=== PATIENT | female | born 1960 | race Caucasian/White ===

== ENCOUNTER 2019-10-01 07:08 | Outpatient (CLI) | payer BC, SELFPAY ==
--- NOTE | ~2019-10-01 | MM_ITS ---
EXAMINATION: MM screening moises BI w swathi HISTORY: Screening mammogram TECHNIQUE: Craniocaudal and mediolateral oblique 3-D tomosynthesis images were obtained and synthetic 2-D images were generated. CAD analysis was submitted and interpreted. COMPARISON: Comparison to multiple prior studies sequentially, with oldest reviewed study dated 01/2013. BREAST PARENCHYMAL COMPOSITION: The breasts are heterogeneously dense, which may obscure small masses . FINDINGS: There is no evidence of suspicious mass, calcification, or architectural distortion to sugg est malignancy in either breast. There has been no suspicious interval change. IMPRESSION: 1. No mammographic evidence of malignancy. 2. Recommend routine screening mammography in one year. BI-RADS Category 1: Negative Reviewed, dictated and finalized at location A. INE HEEL SPRAYER
== END 2019-10-01 07:09 | disposition home or self-care (01) ==
PROVIDERS: PCP Family Medicine; Visit Provider Obstetrics & Gynecology
DX: Z12.31 Encounter for screening mammogram for malignant neoplasm of breast (principal)
CPT/HCPCS: 77063; 77067

== ENCOUNTER 2020-10-07 08:04 | Outpatient (CLI) | payer BC, SELFPAY ==
--- NOTE | ~2020-10-07 | MM_ITS ---
EXAMINATION: MM screening moises BI w swathi HISTORY: Screening mammogram, family history of breast cancer in her mother and sister. TECHNIQUE: Craniocaudal and mediolateral oblique 3-D tomosynthesis images were obtained and synthetic 2-D images were generated. CAD analysis was submitted and interpreted. COMPARISON: 10/01/2019, 09/26/2018 BREAST PARENCHYMAL COMPOSITION: The breasts are heterogeneously dense, which may obscure small masses . FINDINGS: Scattered benign-appearing calcifications are present. There is no evidence of suspicious m ass, calcification, or architectural distortion to suggest malignancy in either breast. There has bee n no suspicious interval change. IMPRESSION: 1. No mammographic evidence of malignancy. 2. Recommend routine screening mammography in one year. BI-RADS Category 2: Benign finding(s). Reviewed, dictated and finalized at location A. UNIT MANAGER
== END 2020-10-07 08:05 | disposition home or self-care (01) ==
LOC: ANHIMG 08:08
PROVIDERS: PCP Obstetrics & Gynecology; Visit Provider Obstetrics & Gynecology
DX: Z12.31 Encounter for screening mammogram for malignant neoplasm of breast (principal)
CPT/HCPCS: 77063; 77067

== ENCOUNTER 2020-11-15 10:45 | Outpatient (CLI) | payer BC, SELFPAY | END 2020-11-15 10:46 | disposition home or self-care (01) | LOC: ANHCOVIDVC 10:45 | PROVIDERS: PCP Obstetrics & Gynecology | DX: Z23 Encounter for immunization (principal) | CPT/HCPCS: 0001A; 91300 ==

== ENCOUNTER 2020-12-06 10:41 | Outpatient (CLI) | payer BC, SELFPAY | END 2020-12-06 10:42 | disposition home or self-care (01) | LOC: ANHCOVIDVC 10:42 | PROVIDERS: PCP Obstetrics & Gynecology | DX: Z23 Encounter for immunization (principal) | CPT/HCPCS: 0002A; 91300 ==

== ENCOUNTER 2021-10-22 08:04 | Outpatient (CLI) | payer BC, SELFPAY ==
--- NOTE | ~2021-10-22 | MM_ITS ---
EXAMINATION: MM screening moises BI w swathi HISTORY: Screening mammogram TECHNIQUE: Craniocaudal and mediolateral oblique 3-D tomosynthesis images were obtained and synthetic 2-D images were generated. CAD analysis was submitted and interpreted. COMPARISON: 10/07/2020, 10/01/2019, 09/26/2018 bilateral digital screening mammogram examinations BREAST PARENCHYMAL COMPOSITION: The breasts are heterogeneously dense, which may obscure small masses . FINDINGS: There is no evidence of suspicious mass, calcification, or architectural distortion to sugg est malignancy in either breast. There has been no suspicious interval change. IMPRESSION: 1. No mammographic evidence of malignancy. 2. Recommend routine screening mammography in one year. BI-RADS Category 1: Negative Reviewed, dictated and finalized at location A.
== END 2021-10-22 08:05 | disposition home or self-care (01) ==
LOC: ANHIMG 08:05
PROVIDERS: PCP Obstetrics & Gynecology; Visit Provider Obstetrics & Gynecology
DX: Z12.31 Encounter for screening mammogram for malignant neoplasm of breast (principal)
CPT/HCPCS: 77063; 77067

== ENCOUNTER 2022-12-14 08:17 | Outpatient (CLI) | payer BC, SELFPAY ==
--- NOTE | ~2022-12-14 | MM_ITS ---
EXAMINATION: MM screening moises BI w swathi HISTORY: Screening mammogram, family history of breast cancer in her mother and sister. TECHNIQUE: Craniocaudal and mediolateral oblique 3-D tomosynthesis images were obtained and synthetic 2-D images were generated. CAD analysis was submitted and interpreted. COMPARISON: 10/22/2021, 10/07/2020, 10/01/2019 BREAST PARENCHYMAL COMPOSITION: The breasts are heterogeneously dense, which may obscure small masses . FINDINGS: No suspicious mass, calcification, or architectural distortion are identified in either lizbeth ast to suggest malignancy. There has been no suspicious interval change. IMPRESSION: 1. No mammographic evidence of malignancy. 2. Recommend routine screening mammography in one year. BI-RADS Category 1: Negative Reviewed, dictated and finalized at location A.
== END 2022-12-14 08:18 | disposition home or self-care (01) ==
LOC: ANHIMG 08:19
PROVIDERS: PCP Family Medicine; Visit Provider Obstetrics & Gynecology
DX: Z12.31 Encounter for screening mammogram for malignant neoplasm of breast (principal)
CPT/HCPCS: 77063; 77067

== ENCOUNTER 2023-12-23 07:55 | Outpatient (CLI) | payer BC, SELFPAY ==
--- NOTE | ~2023-12-23 | US_ITS ---
EXAMINATION: US thyroid DATE: 12/23/2023 08:14 INDICATION: Nontoxic goiter, unspecified. TECHNIQUE: Multiple ultrasound images of the thyroid were obtained. COMPARISON: Ultrasound 10/01/2018 FINDINGS: The right thyroid lobe measures 6.8 x 2.3 x 2.0 cm. The left thyroid lobe measures 5.3 x 1.9 x 1.9 c m. The thyroid is diffusely heterogeneous and hypoechoic. Vascularity is increased. No discrete nodu le. IMPRESSION: 1. Heterogeneous, hypervascular thyroid, likely chronic lymphocytic (Selina's) thyroiditis. Reviewed, dictated and finalized at location A. IMPRESSION: 1. Heterogeneous, hypervascular thyroid, likely chronic lymphocytic (Selina' s) thyroiditis.
== END 2023-12-23 07:56 ==
PROVIDERS: PCP Family Medicine; Visit Provider Obstetrics & Gynecology
DX: E04.9 Nontoxic goiter, unspecified (principal)
CPT/HCPCS: 76536

== ENCOUNTER 2024-02-23 07:31 | Outpatient (CLI) | payer BC, SELFPAY ==
--- NOTE | ~2024-02-23 | MM_ITS ---
EXAMINATION: MM screening moises BI w swathi HISTORY: Screening TECHNIQUE: Craniocaudal and mediolateral oblique 3-D tomosynthesis images were obtained and synthetic 2-D images were generated. CAD analysis was submitted and interpreted. COMPARISON: No prior mammogram is available for comparison at this institution. BREAST PARENCHYMAL COMPOSITION: Dense: The breasts are heterogeneously dense, which may obscure small masses FINDINGS: There are no suspicious masses, calcifications or architectural distortion in either breast to suggest malignancy. IMPRESSION: 1. No mammographic evidence for malignancy in either breast. 2. Routine yearly screening mammogram and regular clinical breast examination are recommended. BI-RADS Category 1: Negative Reviewed, dictated and finalized at location B. IMPRESSION: 1. No mammographic evidence for malignancy in either breast. 2. Routine yearly screening mammogram and regular clinical breast examination a re recommended. BI-RADS Category 1: Negative
== END 2024-02-23 07:32 | disposition home or self-care (01) ==
LOC: ANHIMG 07:33
PROVIDERS: PCP Family Medicine; Visit Provider Obstetrics & Gynecology
DX: Z12.31 Encounter for screening mammogram for malignant neoplasm of breast (principal)
CPT/HCPCS: 77063; 77067

== ENCOUNTER 2025-01-13 15:13 | Outpatient (CLI) | payer BC, SELFPAY ==
--- NOTE | ~2025-01-13 | US_ITS ---
Pelvic ultrasound. Clinical History: Unspecified condition associated with female genitalia Technique: Realtime transabdominal and transvaginal scanning of the pelvis was performed. Color flow Doppler and Doppler spectral analysis were performed. Findings: The uterus is anteverted. The endometrial stripe has a thickness of 3 mm. No focal mass is identified. The right ovary measures 2.5 x 1.4 x 1.6 cm. No significant right ovarian or adnexal mass is seen. The left ovary measures 2.0 x 1.9 x 1.4 cm. No significant left ovarian or adnexal mass is seen. Vascular flow present in both ovaries on Doppler spectral analysis. There is no evidence of free fluid in the cul de sac. Impression: Unremarkable pelvic ultrasound. Reviewed, dictated and finalized at [facility]. Impression: Unremarkable pelvic ultrasound.
== END 2025-01-13 15:14 | disposition home or self-care (01) ==
LOC: MICIMG 15:14
PROVIDERS: PCP Family Medicine; Visit Provider Obstetrics & Gynecology
DX: N94.9 Unspecified condition associated with female genital organs and menstrual cycle (principal)
CPT/HCPCS: 76830; 76856

== ENCOUNTER 2025-03-29 07:22 | Outpatient (CLI) | payer BC, SELFPAY ==
--- NOTE | ~2025-03-29 | MM_ITS ---
EXAMINATION: MM screening moises BI w swathi HISTORY: Screening TECHNIQUE: Craniocaudal and mediolateral oblique 3-D tomosynthesis images were obtained and synthetic 2-D images were generated. CAD analysis was submitted and interpreted. COMPARISON: Comparison to multiple prior studies sequentially, with oldest reviewed study dated 09/26/2018. BREAST PARENCHYMAL COMPOSITION: The breasts are heterogeneously dense, which may obscure small masses. FINDINGS: There is no evidence of suspicious mass, calcification, or architectural distortion to suggest malignancy in either breast. IMPRESSION: 1. No mammographic evidence of malignancy. 2. Recommend routine screening mammography in one year. BI-RADS Category 1: Negative Reviewed, dictated and finalized at location C.
--- OUTSIDE RECORDS SUMMARY | 2025-03-29 07:26 | XMS_ITS | Encounter Summary ---
Author Organization [facility] Address [address] [place] [address] Care Team Providers Care Business Controller Name Role Phone Unavailable Primary Care Provider Unavailabl e Encounter Details Date Type Department Care Team (Late st Contact Info) Description 08/14/2023 Lab Requisition [facility] - DermPath Lab [address] [place] [id number] Uzair Saxena MD [address] [place] [address] Social History Tobacco Use Types Packs/Day Years Used Date Smoking Tobacco: Never Assessed Comments Unknown Sex and Gender Information Value Date Recorded Sex Assigned at Not on file Legal Sex Female 6:09 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 Gender Identity Not on file Sexual Orientation Not on file documented as of this encounter Plan of Treatment Not on file documented as of this encounter Procedures Procedure Name Priority Date/Time Associated Diagnosis Comments DERMATOPATHOLOGY Routine 08/14/2023 3:33 AM DECORATING INSTRUCTOR documented in this encounter Results * DERMATOPATHOLOGY (08/14/2023 3:33 AM DECORATING INSTRUCTOR) Case Report Dermatopathology Report Case: [id number] Authorizing Provider: Uzair Saxena MD Collected: 08/14/2023 03:33 AM Ordering Location: [facility] DermPath Lab Received: 08/15/2023 06:08 AM Pathologist: Valeria Davis MD Specimen: Skin, left mandibular 4 11:27 AM DECORATING INSTRUCTOR DERMATOPATHOLOGY LABORATORY Final Diagnosis Specimen A. SKIN, left mandibular: EPIDERMOID CYST (L72.0) 4 11:27 AM DECORATING INSTRUCTOR DERMATOPATHOLOGY LABORATORY at [address] DECORATING INSTRUCTOR Clinical History R/O CYST 4 11:27 AM [facility] DERMATOPATHOLOGY LABORATORY Gross Description Specimen A: Received is one formalin filled container labeled with the patient's name and designated left mandibular. The specimen consists of a piece of skin measuring 12x92u0 mm. The specimen is serially sectioned and a claims service representative section is submitted in cassette 1. Jar 0+. 11:27 AM [facility] DERMATOPATHOLOGY LABORATORY Microscopic Description Specimen A. SKIN, left mandibular: Within the dermis, there is a space lined by epithelium that resembles normal epidermis and the infundibular portion of the hair follicle. 4 11:27 AM [facility] DERMATOPATHOLOGY LABORATORY Disclaimer An external and internal positive and negative controls are appropriate for the histochemical, immunohistochemical and immunofluorescence stain(s) in this case (if any), except where stated explicitly. The performance characteristics of the stain(s) cited in this report were developed and its performance characteristic determined by the Dermatopathology Laboratory at [facility], directed by Dr. Mathew Gomez. These tests need not be, and therefore are not, approved by the [place] Food and Drug Administration. The tests are used for clinical purposes. Billing Codes Specimen Charges Stain Charges 67667 1 4 11:27 AM [facility] DERMATOPATHOLOGY LABORATORY Embedded Images 4 11:27 AM [facility] DERMATOPATHOLOGY LABORATORY Pathology/Cytolo gy TISSUE SPECIMEN FROM SKIN / Unknown 08/14/2023 3:33 AM DECORATING INSTRUCTOR 08/15/2023 6:08 AM DECORATING INSTRUCTOR Uzair Saxena MD LAB - PATHOLOGY/CYTOLOGY ORDERAB LES Final Result DERMATOPATHOLOGY LABORATORY [facility] - Department of Dermatology [address] [phone] documented in this encounter Visit Diagnoses Not on filedocumented in this encounter
--- OUTSIDE RECORDS SUMMARY | 2025-03-29 07:26 | XMS_ITS | Clinical Summary ---
Author Organization [facility] Address [address] [facility] [place] [address] Care Team Providers Care Jury Consultant Name Role Phone Unavailable Primary Care Provider Unavailabl e Source Comments [facility],non-owned Affiliates and Associated Physician Practices is amultiple site organization consisting of ambulatory clinics and hospital sitesin [place], [place], [place] and [place]. This disclosure is being madepursuant to the Care Everywhere program and may not contain all information available regarding this patient. 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 Gender Identity Not on file Sexual Orientation Not on file Plan of Treatment Health Maintenance Due Date Last Done Comments COLOGUARD (AGES 45-75) - COL ON CA SCREENING 1961 COLON MONITORING 1961 COLONOSCOPY - COLON CA SCREENING 1961 CT COLONOGRAPHY - COLON CA SCREENING 1961 Colorectal Cancer Screening 1961 FIT - COLON CA SCREENING 1961 FLEX SIG - COLON CA SCREENING 1961 LIPID TESTING 1961 MAMMOGRAM 1961 HIV SCREENING 1976 HEPATITIS C SCREENING 07/17/1979 DTAP/TDAP/TD VACCINES (1 - Tdap) 1980 PAP SMEAR 1982 PNEUMOCOCCAL VACCINE 50+ (1 of 1 - PCV) 2011 ZOSTER VACCINE (1 of 2) 2011 COVID-19 VACCINE ( - 2023-2 5 season) 2024 DEPRESSION SCREENING 08/04/2024 INFLUENZA VACCINE (#1) 2025 Respiratory Syncytial Virus (RSV) Vaccine Pt: or over 60 yrs (1 - 1-dose 75+ series) 2036 HEPATITIS B VACCINE Aged Out No longe r eligible based on patient's age to complete this topic HIB VACCINE Aged Out No longer eligi ble based on patient's age to complete this topic HPV VACCINE Aged Out No longer eligi ble based on patient's age to complete this topic MENINGOCOCCAL (Group B) VACC INE SHARED DECISION-MAKING Aged Out No longer eligibl e based on patient's age to complete this topic MENINGOCOCCAL GROUPS A/C/Y/W VACCINE Aged Out No longer eligible b ased on patient's age to complete this topic Insurance [facility] Address: [facility] [id number] [place] [address]
--- OUTSIDE RECORDS SUMMARY | 2025-03-29 07:26 | XMS_ITS | Clinical Summary ---
Author Organization [address] Address [address] [place] [address] BENJIE Solorio [id number] Care Team Providers Care Kiss Setter Hand Name Role Phone Shonna Lamb MD Primary Care Provider Allergies No known active allergies Medications multivit with minerals/lutein (MULTIVITAMIN 50 PLUS ORAL)Indication s:supplement Take 1 tablet/capsule by mouth every morning Active Lumigan 0.01 % ophthalmic drops Administer 1 drop into both eyes nightly 2.5 mL 11 4 Active Active Problems Problem Noted Date Diagnosed Date Right posterior capsular opacification 4 Pseudophakia of both eyes 05/21/2024 Nuclear sclerotic cataract of right eye 04/01/20 24 Primary open angle glaucoma of right eye, severe stage 04/01/2024 Assessment & Plan (07/15/2024 11:52 AM TEACHER THEATER ARTS): Doing well after phaco/GATT OU IOP at goal on 1 class. Will have IOP checks with Dr. Crowley every 4-6 mo and repeat HVF/OCT with me in 1 year. If stable and at goal ok to cont f/u with Dr. Crowley Nuclear sclerotic cataract of left eye 4 Primary open angle glaucoma of left eye, severe stage 02/12/2024 Primary open angle glaucoma (POAG) of both eyes, severe stage 02/03/2024 Assessment & Plan (04/22/2024 12:47 PM CDT): POW1 Extraction Cataract - Phacoemulsification And Lens Implant - Right and Trabeculotomy Gonioscopy-assisted Transluminal - Right Postoperative instructions were given. The patient is to use: Prednisolone Acetate 1% QID with taper over 3 weeks stop moxi right eye continue lumigan OU f/u in 3 weeks with optom for dfe and mrx given severity of glaucoma in both eyes, iop goal should be mid to low teens f/u [address] Arguelles for HVF 24-2 new baseline Signs, symptoms of retinal detachment, tear, hole, and endophthalmitis were reviewed and the patient is to call immediately for concerns. We discussed that things should improve until they stabilize. Should there be any worsening of pain, vision, or redness the patient is to call. Assessment & Plan (04/15/2024 9:02 AM CDT): POD1 Extraction Cataract - Phacoemulsification And Lens Implant - Right and Trabeculotomy Gonioscopy-assisted Transluminal - Right Postoperative instructions were given. The patient is to use: moxifloxacin QID X 1 week Prednisolone Acetate 1% QID continue lumigan OU Patient is to wear the shield at bedtime X 1 week. Signs, symptoms of retinal detachment, tear, hole, and endophthalmitis were reviewed and the patient is to call immediately for concerns. We discussed that things should improve until they stabilize. Should there be any worsening of pain, vision, or redness the patient is to call. Followup 1 week or sooner prn issues. For other eye continue lumigan Assessment & Plan (03/11/2024 10:52 AM CDT): POW1 Extraction Cataract - Phacoemulsification And Lens Implant - Left and Trabeculotomy Gonioscopy-assisted Transluminal - Left Postoperative instructions were given. The patient is to use: stop moxi taper pred forte 3-2-1 x 1 week each 17 today on lumigan - continue lumigan for now happy with the amount of near vision in the left eye IOP right eye 28 today on 3 classes. Bothered by vision right eye today. Would plan for ceiol/gatt right eye Assessment & Plan (03/04/2024 11:41 AM CDT): POD1 Extraction Cataract - Phacoemulsification And Lens Implant - Left and Trabeculotomy Gonioscopy-assisted Transluminal - Left Postoperative instructions were given. The patient is to use: moxifloxacin QID X 1 week Prednisolone Acetate 1% QID IOP 19 today,. will start lumigan qhs right eye Patient is to wear the shield at bedtime X 1 week. Signs, symptoms of retinal detachment, tear, hole, and endophthalmitis were reviewed and the patient is to call immediately for concerns. We discussed that things should improve until they stabilize. Should there be any worsening of pain, vision, or redness the patient is to call. Followup 1 week or sooner prn issues. Nuclear sclerosis of both eyes 02/03/2024 Assessment & Plan (02/03/2024 3:49 PM CDT): Treated for roughly 4 years and dense sup arcuate OU on HVF and loss of inf rim on OCT OU Recommend phaco/gatt OS and if good result can proceed with the same OD. The patient understands the risks, benefits, alternatives and wishes to proceed with cataract surgery. We discussed the target and the patient elects target plano. We discussed toric and multifocal lens options as well as laser assisted wounds however I prefer a manual technique here. The patient understands glasses are a possibility and is comfortable proceeding with a monofocal lens. Book Phaco/IOL/GATT (180 at least) left eye. OD to follow after OS IOLM Surgical History Surgery Date Site/Laterality Comments IRIDOTOMY / IRIDECTOMY 08/04/2019 - 08/03/2020 Bilateral LPI OU-Dr. Lori Crowley KNEE ARTHROSCOPY W/ MENISCECTOMY 08/04/2010 - 08/03/2011 Left EYE SURGERY CATARACT EXTRACTION W/ INTRAOCULAR LENS IMPLANT 03/03/2024 Left Phaco/IOL/GATT; Dr. Norma Arguelles CATARACT EXTRACTION W/ INTRAOCULAR LENS IMPLANT 04/14/2024 Right Phaco/IOL/GATT; Dr. Norma Arguelles Medical History Medical History Date Comments Glaucoma Family History Medical History Relation Name Comments Glaucoma Father Amblyopia Neg Hx Macular degeneration Neg Hx Relation Name Status Comments Father Social History Tobacco Use Types Packs/Day Years Used Date Smoking Tobacco: Never Passive Smoke Exposure: Past Smokeless Tobacco: Never Tobacco Cessation:Counseling Given: Not Answered AUDIT-C Answer Date Recorded Q1: How often do you have a drink containing alc ohol? Monthly or less 04/14/2024 Q2: How many drinks containi ng alcohol do you have on a typical day when you are drinking? 1 or 2 04/14/2024 Q3: How often do you have si x or more drinks on one occasion? Never 04/14/2024 Personal Safety Answer Date Recorded Have you ever been in or are you currently in a harmful physical or emotional relationship or is someone making you feel afraid or unsafe? Denies 04/14/2024 Comments No Sex and Gender Information Value Date Recorded Sex Assigned at Not on file Legal Sex Female 8:57 PM TEACHER THEATER ARTS Gender Identity Not on file Sexual Orientation Not on file Obstetrics History Last Filed Vital Signs Vital Sign Reading Time Taken Comments Blood Pressure 149/92 06/29/2024 9:58 AM TEACHER THEATER ARTS Pulse 136 06/29/2024 9:58 AM TEACHER THEATER ARTS Temperature 36.8 C (98.2 F) 06/29/2024 9:54 AM TEACHER THEATER ARTS Respiratory Rate 19 04/14/2024 9:32 AM CDT Oxygen Saturation 98% 04/14/2024 11:12 AM CDT Inhaled Oxygen Concentration - - Weight 71.4 kg (157 lb 6.4 oz) 06/29/2024 9:54 A M TEACHER THEATER ARTS Height 165.1 cm (5' 5) 06/29/2024 9:54 AM TEACHER THEATER ARTS Body Mass Index 26.19 06/29/2024 9:54 AM TEACHER THEATER ARTS Plan of Treatment Health Maintenance Due Date Last Done Comments Breast Cancer Screening-Mammogram 1961 Cervical Cancer Screening 1961 Colon Cancer Screening-Colonoscopy 1961 Depression Screening 1961 Hepatitis C Screening 1961 Hepatitis B Screening 1979 Regular Well Visit/Exam 18-64 1979 Zoster Vaccine (1 of 2) 2011 Covid-19 Vaccine ( - 2023-2 5 season) 2024 08/24/2021, 12/06/2020, 11/15/2020 Influenza Vaccine (#1) 2025 DTaP/Tdap/Td Vaccine (2 - Td or Tdap) 02/11/2033 02/11/2023 Pneumococcal vaccine <65 Aged Out No longer eligible based on patient's age to complete this topic Medical Devices Implanted Type Area Pointer Machine Operator Device Identifier Shelf Expiration Date Model / Serial / Lot [employer] Lens Iol Posterior Biconvex Optic Single Piece Envista 6.0x12.5 +23.5d Hydrophobic Acrylic [id number] - [id number] - [id number] Implanted:Qty: 1 on 03/03/2024 by Norma Arguelles MD at [facility] Lens Left: Eye [employer] [id number] 12/01/2025 [id number] / [id number] / [id number] [employer] Lens Iol Posterior Biconvex Optic Single Piece Envista 6.0x12.5 +23.0d Hydrophobic Acrylic [id number] - [id number] - [id number] Implanted:Qty: 1 on 04/14/2024 by Norma Arguelles MD at [facility] Lens Right: Lens [employer] [id number] 08/03/2026 [id number] / [id number] / [id number] [place], [place] [address]O [place] Care Teams Kiss Setter Hand Relationship Specialty Start Date End Date Shonna Lamb MD [address] [facility] [address] [place] [address] PCP - General Family Practice 01/06/24
== END 2025-03-29 07:23 | disposition home or self-care (01) ==
LOC: ANHIMG 07:23 → ANHFOHIMG 07:24
PROVIDERS: PCP Family Medicine; Visit Provider Obstetrics & Gynecology
DX: Z12.31 Encounter for screening mammogram for malignant neoplasm of breast (principal)
CPT/HCPCS: 77063; 77067